=== PATIENT | female | born 1960 | race Caucasian/White ===

== ENCOUNTER 2017-05-03 08:33 | Outpatient (CLI) | payer OTHER ==
--- NOTE | 2017-05-03 09:50 | RAD ---
TWO VIEWS OF THE CHEST: DATE: 05/03/17. COMPARISON: 01/19/17. HISTORY: Dyspnea. FINDINGS: There is no pneumothorax, pleural fluid, focal consolidation, or alveolar edema. Heart and mediastin al contours appear grossly unremarkable. IMPRESSION: No acute findings. POS: [facility]
== END 2017-05-03 08:34 | disposition home or self-care (01) ==
LOC: RAD 08:33
PROVIDERS: ATTEND Internal Medicine Critical Care Medicine
DX: R06.00 Dyspnea, unspecified (principal)
CPT/HCPCS: 71020

== ENCOUNTER 2017-07-19 10:03 | Outpatient (CLI) | payer OTHER ==
--- NOTE | 2017-07-19 12:05 | RAD ---
TWO VIEWS CHEST COMPARISON: 05/03/2017 INDICATION: Dyspnea. FINDINGS: There is no evidence of consolidation or effusion. Lungs are mildly hyperinflated. Cardiac silhouet te is within normal size. No significant changes. IMPRESSION: No focal consolidation. POS: [facility]
== END 2017-07-19 10:04 | disposition home or self-care (01) ==
LOC: RAD 10:03
PROVIDERS: ATTEND Internal Medicine Critical Care Medicine
DX: R06.00 Dyspnea, unspecified (principal)
CPT/HCPCS: 71046

== ENCOUNTER 2017-07-20 08:07 | Outpatient (CLI) | payer OTHER ==
[2017-07-20] MEDS ORDERED: Gadobenate Dimeglumine 529 MG/1 ML (20ML VIAL) ONE (09:00)
--- NOTE | 2017-07-20 16:53 | MRI ---
MR OF THE LUMBAR SPINE WITH AND WITHOUT CONTRAST: 07/20/17 INDICATION: Radiculopathy of the lumbar spine with a history of lumbar spinal surgery in 2015. The patient is hav ing chronic low back pain with radiation to the right buttock and hip since the surgery. The patient also has a history of breast cancer. Comparisons are made with the prior exam dated 08/01/15. FINDINGS: 7 mL of Multihance was utilized for the examination. There is postsurgical change of a left hemilaminotomy at L2-3. There is abnormal increased T2 signal and enhancement involving the right sacral ala that is incomple tely visualized. At the L5-S1 level, there is a mild broad based bulge with facet joint degenerative change. There is no appreciable central canal or neural foraminal narrowing. There is a small left paracentral anal fi ssure measuring 1.1 cm on image 43 of series 6. The degree of the disc bulge and anal fissure appears similar to the comparison exam. At L4-5, there is an asymmetric to the left broad based bulge. There is grade I anterolisthesis which is stable. The broad based bulge induces mild left neural foraminal narrowing which is stable. At L3-4, there is a broad based bulge with facet joint degenerative change. this appears stable in si ze. There is stable mild central canal narrowing. At L2-3, there is stable postsurgical change. There is a broad based without appreciable central lalo l or neural foraminal narrowing. At L1-2, there is no appreciable central canal or neural foraminal narrowing. At T12-L1, there is no appreciable central canal or neural foraminal narrowing. No abnormal enhanceme nt is seen at the operative level. No abnormal nerve root enhancement is evident. IMPRESSION: 1. Abnormal signal and enhancement involving the right sacral ala, incompletely visualized may r eflect insufficiency fracture; however, the patient has history of breast cancer, a metastatic lesion cannot be entirely excluded. Dedicated MR of the pelvis with and without contrast is recommended for additional characterization. 2. Stable multilevel spondylosis of the lumbar spine with mild neural foraminal narrowing as det crescencio above. POS: [facility]
== END 2017-07-20 08:08 | disposition home or self-care (01) ==
LOC: SCSMRI 08:07
PROVIDERS: ATTEND Nurse Practitioner Family
DX: M47.26 Other spondylosis with radiculopathy, lumbar region (principal); M47.27 Other spondylosis with radiculopathy, lumbosacral region; M99.53 Intervertebral disc stenosis of neural canal of lumbar region; R93.7 Abnormal findings on diagnostic imaging of other parts of musculoskeletal system
CPT/HCPCS: 72158; A9579

== ENCOUNTER 2017-07-26 12:35 | Outpatient (CLI) | payer OTHER ==
[2017-07-26] MEDS ORDERED: Gadobenate Dimeglumine 529 MG/1 ML (20ML VIAL) ONE (16:15)
== END 2017-07-26 12:36 | disposition home or self-care (01) ==
LOC: BICMRI 12:35
PROVIDERS: ATTEND Nurse Practitioner Family
DX: M54.16 Radiculopathy, lumbar region (principal); M84.48XD Pathological fracture, other site, subsequent encounter for fracture with routine healing
CPT/HCPCS: 72197; A9579

== ENCOUNTER 2017-09-22 14:08 | Outpatient (CLI) | payer OTHER ==
--- NOTE | 2017-09-22 15:22 | RAD ---
TWO VIEWS RIGHT HIP: Comparison: None. History: Right hip pain. FINDINGS: Two views of the right hip shows no evidence of acute fracture or dislocation. No degenerative change s are seen. No soft tissue swelling is present. IMPRESSION: Unremarkable exam. POS: [facility]
--- NOTE | 2017-09-22 15:24 | RAD ---
SINGLE VIEW OF THE PELVIS: Comparison: None. History: Pelvic pain. FINDINGS: Single view of the pelvis shows no evidence of acute fracture or dislocation. No degenerative changes are seen. No soft tissue swelling is present. IMPRESSION: Unremarkable exam. POS: [facility]
== END 2017-09-22 14:09 | disposition home or self-care (01) ==
LOC: RAD 14:08
PROVIDERS: ATTEND Nurse Practitioner Family
DX: M25.551 Pain in right hip (principal); R10.2 Pelvic and perineal pain
CPT/HCPCS: 72170

== ENCOUNTER 2017-09-30 13:00 | Outpatient (CLI) | payer OTHER ==
--- NOTE | 2017-09-30 14:50 | MRI ---
MRI OF THE PELVIS WIHTOUT CONTRAST: INDICATION: Right-sided groin pain. COMPARISON: Right hip radiograph dated 09/22/17. FINDINGS: There is a nondisplaced insufficiency fracture involving zone 1 of the right sacral alae. There are nondisplaced insufficiency fractures involving the left pubic body, left inferior pubic ramus, right superior and right inferior pubic ramus. No additional fracture is evident. The visualized intrapel gregory contents reveal no definite acute abnormality. No free fluid is evident. There is mild degenera tive change of both hips. No appreciable muscular atrophy is seen involving the pelvic girdle muscul ature. There is some mild tendinosis of the gluteus minimus and medius muscles bilaterally. There i s mild left trochanteric bursitis. There is suspicion for a partial-thickness tear involving the lef t gluteus minimus tendon at its insertion. IMPRESSION: 1. Nondisplaced insufficiency fracture of the right sacral ala, left pubic body, right superior pubi c ramus, and bilateral inferior pubic rami. 2. Partial-thickness tear involving the left gluteus minimus tendon at the insertion with mild left trochanteric bursitis. There is tendinosis of the gluteus minimus and medius tendons bilaterally. POS: [facility]
== END 2017-09-30 13:01 | disposition home or self-care (01) ==
LOC: MRI 13:00
PROVIDERS: ATTEND Nurse Practitioner Family
DX: M84.48XA Pathological fracture, other site, initial encounter for fracture (principal); S76.012A Strain of muscle, fascia and tendon of left hip, initial encounter
CPT/HCPCS: 72195

== ENCOUNTER 2019-04-03 11:18 | Outpatient (CLI) | payer OTHER ==
--- NOTE | 2019-04-03 12:05 | RAD ---
Neutral, flexion, and extension lateral radiographs of the lumbar spine: 04/03/2019 HISTORY: Lumbar radiculopathy FINDINGS: Neutral lateral examination demonstrates anterolisthesis of L4 on L5 measuring 4-5 mm. The flexion imaging demonstrates anterolisthesis at L4-5 measuring approximately 7-8 mm. This anterolisthesis of L4 on L5 measures approximately 4-5 mm on the extension imaging. There is multilev el lower lumbar spine facet hypertrophy including the L3-4, L4-5, and L5-S1 levels. There is a focal area of prominent increased density overlying the upper sacrum which appears to repr esent a cement on the basis of a prior invasive procedure. Of note, pelvic MRI performed 09/30/2017 demonstrated a sacral insufficiency fracture. Clinical correlation is essential. IMPRESSION: Anterolisthesis of L4 on L5, most prominent upon flexion. Focal area of prominent increased density overlies the upper sacrum suggesting cement. Please see abo ve discussion.
== END 2019-04-03 11:19 | disposition home or self-care (01) ==
LOC: RAD 11:18
PROVIDERS: ATTEND Nurse Practitioner Family
DX: M54.16 Radiculopathy, lumbar region (principal); M43.16 Spondylolisthesis, lumbar region; M53.3 Sacrococcygeal disorders, not elsewhere classified
CPT/HCPCS: 72100

== ENCOUNTER 2019-10-16 | Outpatient (CLI) | payer OTHER | END 2019-10-16 08:35 | disposition home or self-care (01) | DX: M54.6 Pain in thoracic spine (principal); M51.16 Intervertebral disc disorders with radiculopathy, lumbar region; M48.061 Spinal stenosis, lumbar region without neurogenic claudication; S32.10XD Unspecified fracture of sacrum, subsequent encounter for fracture with routine healing; Z98.890 Other specified postprocedural states ==

== ENCOUNTER 2020-08-16 08:49 | Outpatient (CLI) | payer OTHER ==
[2020-08-17 01:24] LABS: SARS-CoV-2 PCR by NAA Not Detected (NotDetected)
== END 2020-08-16 08:50 | disposition home or self-care (01) ==
LOC: LABBT 08:49
PROVIDERS: ATTEND Neurological Surgery
DX: Z01.812 Encounter for preprocedural laboratory examination (principal); M43.16 Spondylolisthesis, lumbar region; M54.5 Low back pain; Z20.822 Contact with and (suspected) exposure to COVID-19
CPT/HCPCS: 87635; U0003; U0005

== ENCOUNTER 2020-08-21 07:01 | Day surgery (SDC) | payer OTHER ==
[2020-08-20 12:14] VITALS: BMI 22.2
[2020-08-21] MEDS ORDERED: EPINEPHrine 1 MG/ML AMP ONE (08:43)
[2020-08-21] MEDS ORDERED: Bupivacaine PF 0.5% 30 ML VIAL ONE (08:43)
[2020-08-21] MEDS ORDERED: Thrombin 5000 UNITS/5 ML VIAL ONE (08:43)
[2020-08-21] MEDS ORDERED: Fentanyl 250 MCG/5 ML VIAL ONE (08:55)
[2020-08-21] MEDS ORDERED: Glycopyrrolate 0.2 MG/ML 5 ML SYRINGE ONE (09:05)
[2020-08-21] MEDS ORDERED: PROPOFOL 200 MG/20 ML VIAL ONE (09:05)
[2020-08-21] MEDS ORDERED: Ondansetron PF 4 MG/2 ML Vial ONE (09:05)
[2020-08-21] MEDS ORDERED: Rocuronium Bromide 10 MG/ML (10ML VIAL) ONE (09:05)
[2020-08-21] MEDS ORDERED: Dexamethasone 20 MG/5 ML VIAL ONE (09:05)
[2020-08-21] MEDS ORDERED: Lidocaine 1% PF 5 ML VIAL ONE (09:05)
[2020-08-21] MEDS ORDERED: Fentanyl 100 MCG/2 ML VIAL ONE ×3 (11:38→12:20)
[2020-08-21] MEDS ORDERED: Cyclobenzaprine 10 MG TAB ONE (12:04)
[2020-08-21] MEDS ORDERED: HYDROcodone/Acetaminophen 5/325 mg Tablet ONE (13:28)
[2020-08-21] MEDS ORDERED: Promethazine HCl 25 MG/ML VIAL ONE (13:31)
[2020-08-21] MEDS ORDERED: Scopolamine 1.5 mg/72 hour Patch ONE (13:52)
== END 2020-08-21 14:50 | disposition home or self-care (01) ==
LOC: SDC 07:01
PROVIDERS: ATTEND Neurological Surgery
PROC: 0SG3071 Fusion of Lumbosacral Joint with Autologous Tissue Substitute, Posterior Approach, Posterior Column, Open Approach (ICD-10-PCS; principal; 2020-08-21)
PROC: 0SG0071 Fusion of Lumbar Vertebral Joint with Autologous Tissue Substitute, Posterior Approach, Posterior Column, Open Approach (ICD-10-PCS; principal; 2020-08-21)
DX: M43.16 Spondylolisthesis, lumbar region (principal); M54.16 Radiculopathy, lumbar region; M19.90 Unspecified osteoarthritis, unspecified site; J45.909 Unspecified asthma, uncomplicated; G89.4 Chronic pain syndrome; M81.0 Age-related osteoporosis without current pathological fracture; E03.9 Hypothyroidism, unspecified; Z79.899 Other long term (current) drug therapy; Z88.5 Allergy status to narcotic agent; Z88.6 Allergy status to analgesic agent; Z91.048 Other nonmedicinal substance allergy status
CPT/HCPCS: 76000; C1713; C1768; J0171; J0690; J1100; J2405; J2550; J2704; J3010; S0020

== ENCOUNTER 2022-04-28 16:05 | Outpatient (CLI) | payer OTHER ==
[2022-04-28 17:14] LABS: #Eosinphils 0.8 10x3/uL (0.0-0.5); #Monocytes 0.6 10x3/uL (0.0-1.1); #Neutrophils 3.3 10x3/uL (1.5-8.4); %Basophils 0.6 % (0.0-2.0); %Eosinophils 12.6 % (0.0-6.0); %Lymphocytes 27.5 % (18.0-47.0); %Monocytes 9.4 % (0.0-10.0); %Neutrophils 49.6 % (40.0-75.0); Hemoglobin 12.6 g/dL (12.0-15.5); Mean Corpuscular HGB CONC 33.6 g/dL (32.0-36.0); Mean Corpuscular Hemoglobin 30.7 pg (27.0-33.0); Mean Corpuscular Volume 91.5 fl (81.6-98.3); Mean Platelet Volume 10.4 fl (7.4-10.4); Platelet Count 265 10x3/uL (150-450); RBC Distribution Width 13.2 % (11.5-14.5); White Blood Cell (WBC) Count 6.7 10x3/uL (3.5-10.5)
== END 2022-04-28 16:06 | disposition home or self-care (01) ==
LOC: LABBT 16:05
PROVIDERS: ATTEND Surgery
DX: Z01.818 Encounter for other preprocedural examination (principal); D17.22 Benign lipomatous neoplasm of skin and subcutaneous tissue of left arm
CPT/HCPCS: 85025; 93005; 93010

== ENCOUNTER 2022-05-01 07:27 | Day surgery (SDC) | payer OTHER ==
[2022-04-30 10:34] VITALS: BMI 22.9
[2022-05-01] MEDS ORDERED: Bupivacaine/Epinephrine 0.25% 30 ML VIAL ONE (09:00)
[2022-05-01] MEDS ORDERED: Scopolamine 1.5 mg/72 hour Patch ONE (09:05)
[2022-05-01] MEDS ORDERED: Midazolam HCl 2 mg/2 ml Vial ONE (09:13)
[2022-05-01] MEDS ORDERED: FENTANYL 50 MCG/ML 1 ML VIAL ONE ×2 (09:13→10:33)
[2022-05-01] MEDS ORDERED: CEFAZOLIN 2 GM VIAL ONE (09:16)
[2022-05-01] MEDS ORDERED: Sodium Chloride 0.9% 100 ML ONE (09:16)
[2022-05-01] MEDS ORDERED: Dexamethasone 20 MG/5 ML VIAL ONE (09:31)
[2022-05-01] MEDS ORDERED: Ondansetron PF 4 MG/2 ML Vial ONE (09:31)
[2022-05-01] MEDS ORDERED: PROPOFOL 200 MG/20 ML VIAL ONE (09:31)
[2022-05-01] MEDS ORDERED: traMADol HCl 50 MG TAB ONE (11:39)
== END 2022-05-01 12:13 | disposition home or self-care (01) ==
LOC: SDC 07:27
PROVIDERS: ATTEND Surgery
PROC: 0JBF0ZZ Excision of Left Upper Arm Subcutaneous Tissue and Fascia, Open Approach (ICD-10-PCS; principal; 2022-05-01)
DX: D17.22 Benign lipomatous neoplasm of skin and subcutaneous tissue of left arm (principal); M19.90 Unspecified osteoarthritis, unspecified site; G89.29 Other chronic pain; N28.9 Disorder of kidney and ureter, unspecified; E07.9 Disorder of thyroid, unspecified; E89.2 Postprocedural hypoparathyroidism; Z85.3 Personal history of malignant neoplasm of breast; Z79.890 Hormone replacement therapy; Z79.899 Other long term (current) drug therapy; Z88.5 Allergy status to narcotic agent; Z88.6 Allergy status to analgesic agent; Z91.048 Other nonmedicinal substance allergy status
CPT/HCPCS: 88304; J1100; J2250; J2405; J2704; J3010; J3490